=== PATIENT | female | born 1960 | race Caucasian/White ===

== ENCOUNTER → 2016-09-06 | Outpatient (CLI) | payer MEDICARE ==
[2016-09-06 15:45] LABS: AMPHETAMINES/METAMPHETAMINES NEGATIVE ng/mL (<1000)
== END ==
LOC: MAY-LAB 14:20
PROVIDERS: Internal Medicine
DX: F11.10 Opioid abuse, uncomplicated (principal); Z79.891 Long term (current) use of opiate analgesic